=== PATIENT | female | born 1945 | race Caucasian/White ===

== ENCOUNTER 2017-12-07 14:14 | Emergency (ER) | payer MEDICARE ==
[~2017-12-07] VITALS: Ht 167.6 cm; Wt 62.6 kg
[2017-12-07] MEDS ORDERED: predniSONE 20 MG TABLET PO ONE (14:30)
[2017-12-07] MEDS ORDERED: IPRATRPIUM/ALBUTEROL 0.5/2.5MG 3 ML NEBU. NEB ONE (14:30)
[2017-12-07] MEDS ORDERED: PRED20TA PO (14:33)
[2017-12-07] MEDS ORDERED: ALBU6.7H IH (14:33)
--- NOTE | 2017-12-07 14:34 | PHYS DOC ---
Past History Past Medical History: High Cholesterol, Other Past Surgical History: No Surgical History Alcohol Use: None Drug Use: None Adult General Chief Complaint Chief Complaint: COUGH HPI HPI 72-year-old otherwise very healthy female [facility] secondary to wheezing and coughing and concern about pneumonia. Patient states that a month or so ago she was on 2 weeks of amoxicillin for a presumed ammonia. She did not have a chest x-ray at that time. She states over the last several days she's developed more of a cough and some increased shortness of breath. She denies any fever chills or sweats. She denies any hemoptysis. She has not been a smoker.[] Review of Systems Review of Systems Constitutional: Denies fever or chills [] Eyes: Denies change in visual acuity, redness, or eye pain [] HENT: Denies nasal congestion or sore throat [] Respiratory: Per history of present illness[] Cardiovascular: No additional information not addressed in HPI [] GI: Denies abdominal pain, nausea, vomiting, bloody stools or diarrhea [] : Denies dysuria or hematuria [] Musculoskeletal: Denies back pain or joint pain [] Integument: Denies rash or skin lesions [] Neurologic: Denies headache, focal weakness or sensory changes [] Endocrine: Denies polyuria or polydipsia [] All other systems were reviewed and found to be within normal limits, except as documented in this note. Physical Exam Physical Exam Constitutional: Well developed, well nourished, no acute distress, non-toxic appearance. [] HENT: Normocephalic, atraumatic, bilateral external ears normal, oropharynx moist, no oral exudates, nose normal. [] Eyes: PERRLA, EOMI, conjunctiva normal, no discharge. [] Neck: Normal range of motion, no tenderness, supple, no stridor. [] Cardiovascular:Heart rate regular rhythm, no murmur [] Lungs & Thorax: Mild apical wheezes bilaterally no rales[] Abdomen: Bowel sounds normal, soft, no tenderness, no masses, no pulsatile masses. [] Skin: Warm, dry, no erythema, no rash. [] Back: No tenderness, no CVA tenderness. [] Extremities: No tenderness, no cyanosis, no clubbing, ROM intact, no edema. [] Neurologic: Alert and oriented X 3, normal motor function, normal sensory function, no focal deficits noted. [] Psychologic: Affect normal, judgement normal, mood normal. [] EKG EKG [] Radiology/Procedures Radiology/Procedures []PATIENT: VAMSHI BATES EACCOUNT: [id number]#: [id number] : 1945 LOCATION: ER AGE: 72 SEX: F EXAM STATUS: PRE ER ORD. PHYSICIAN: ELLA ROE DO REASON: wheezing PROCEDURE: CHEST AP ONLY Portable chest, 12/07/2017: HISTORY: Cough and wheezing The heart size and pulmonary vascularity are normal. No pulmonary infiltrate is seen. There is no evidence of pleural fluid. IMPRESSION: No acute cardiopulmonary abnormality is detected. Impressions: Chest x-ray: Negative exam as interpreted by me Course & Med Decision Making Course & Med Decision Making Pertinent Labs and Imaging studies reviewed. (See chart for details) [ED course: Evaluation reveals a 72-year-old female with some mild wheezing. She was given 60 mg prednisone and a DuoNeb which completely resolved her symptoms. I'll start her on albuterol metered-dose inhaler and steroids as an outpatient. I believe this is a viral bronchitis and will not need to be treated with any further antibiotics. I have recommended that she follow up with her primary care physician if she is not better in the next week or 2.] Dragon Disclaimer Dragon Disclaimer This electronic medical record was generated, in whole or in part, using a voice recognition dictation system. Departure Departure: Impression: Primary Impression: Bronchitis Disposition: 01 HOME, SELF-CARE Condition: IMPROVED Referrals: SABINO MENARD MD (PCP) Patient Instructions: Acute Bronchitis Additional Instructions: Follow with Dr. Garcia in the next 3-5 days. Return to the emergency department with any new or concerning symptoms. Scripts Albuterol Sulfate (PROVENTIL HFA INHALER) 6.7 Gm Hfa.aer.ad 2 PUFF IH PRN Q4HRS PRN for FOR ASTHMA, #1 INHALER 2 Refills Prov: ELLA ROE DO 12/07/17 Prednisone (PREDNISONE) 20 Mg Tablet 1 TAB PO BID for Bronchitis, #20 TAB Prov: ELLA ROE DO 12/07/17 ELLA ROE DO Dec 07, 2017 14:34
--- NOTE | 2017-12-07 14:57 | RAD ---
Portable chest, 12/07/2017: HISTORY: Cough and wheezing The heart size and pulmonary vascularity are normal. No pulmonary infiltrate is seen. There is no evidence of pleural fluid. IMPRESSION: No acute cardiopulmonary abnormality is detected. Electronically signed by: Wesley Lopez MD (12/07/2017 2:53 PM) [facility]
[2017-12-07 15:10] VITALS: BP 146/88
== END 2017-12-07 15:15 | disposition home or self-care (01) ==
LOC: ER 14:14
DX: J40 Bronchitis, not specified as acute or chronic (principal); E78.00 Pure hypercholesterolemia, unspecified
CPT/HCPCS: 71045; 94640; 99283; J7512; J7620

== ENCOUNTER 2020-05-29 01:28 | Emergency (ER) | payer MEDICARE ==
[~2020-05-29] VITALS: Ht 160 cm; Wt 65.3 kg
[~2020-05-29 01:28] MED LIST: ALBU2.5V8 IH; PRED20TA PO
--- NOTE | 2020-05-29 01:31 | PHYS DOC ---
Past History Past Medical History: Anxiety, Arthritis, Bronchitis, Diabetes, High Cholesterol, Hypertension, Other Past Surgical History: Tonsillectomy Alcohol Use: None Drug Use: None General Adult HPI: HPI: ".. I feel terrible...I ve coughing, wheezing, aching., I was exposed to the other [employer] team that had Covid infections last week... I got sick starting T hursday.. Have been flat in bed since then..., Lost my smell, taste, I hurt everywhere..." Patient is a 74 year old female who presents with above hx and complaints nausea, vomiting, diarrhea, arthralgia, myalgia, malaise, loss of taste and smell, and dyspnea. Patient exposed to fellow [employer] team members who tested positive for Covid last week. Patient states her non-productive cough has been constant the last 24 hours. Patient denies any travel . Patient has had episodes of bronchitis in the past. Patient has history of hypothyroidism, arthritis and bronchitis.. Pt. does not do flu vaccinations. The patient follows with Dr. Menard. Review of Systems: Review of Systems: Constitutional: Hx. of fever and chills Eyes: Denies change in visual acuity HENT: Hx lost of taste and smell Respiratory: Complaints of cough and shortness of breath Cardiovascular: Denies chest pain or edema GI: Complaints nausea, vomitingand diarrhea : Denies dysuria Musculoskeletal: Complaints of generalized muscle and joint pain Integument: Denies rash Neurologic: Denies headache, focal weakness or sensory changes Endocrine: Denies polyuria or polydipsia Lymphatic: Denies swollen glands Psychiatric: Denies depression or anxiety Family History: Family History: Noncontributory presentation Current Medications: Current Meds: See nursing for home meds Allergies: Allergies: Patient reports no known allergies to medications Allergies Coded Allergies Type Severity Reaction Last Updated Verified No Known Drug Allergies 12/07/17 No Physical Exam: PE: Constitutional: Moderate acute distress, non-toxic appearance. [] HENT: Normocephalic, atraumatic, bilateral external ears normal, oropharynx dry, postnasal drainage no oral exudates, nose swollen turbinates and clear rhinorrhea Eyes: PERRLA, EOMI, conjunctiva normal, no discharge. [] Neck: Normal range of motion, no tenderness, supple, no stridor. [] Cardiovascular:Heart rate regular rhythm, no murmur [] Lungs & Thorax: Bilateral breath sounds equal apex with scattered wheezes on auscultation []. Somewhat persistent nonproductive hacking cough. Abdomen: Bowel sounds normal, soft, no tenderness, no masses, no pulsatile masses. [] Skin: Warm, dry, no erythema, no rash. Poor turgor Back: No tenderness, no CVA tenderness. [] Extremities: Complains of generalized muscle and joint tenderness, no cyanosis, no clubbing, ROM intact, no edema. No cording. Neurologic: Alert and oriented X 3, normal motor function, normal sensory function, no focal deficits noted. [] Psychologic: Affect anxious, judgement normal, mood normal. [] Current Patient Data: Labs: See nursing for home meds EKG: EKG: My interpretation EKG shows a sinus rhythm at 76 bpm. There is a right bundle branch block. Some nonspecific contour changes and the septal leads. But no findings of acute STEMI with contralateral changes [] Radiology/Procedures: Radiology/Procedures: [][place] [address] IMAGING REPORT Signed PATIENT: VAMSHI BATES EACCOUNT: [id number] : 1945 LOCATION: ER AGE: 74 SEX: F EXAM STATUS: REG ER ORD. PHYSICIAN: ETHEL SMALL MD REASON: DYSPNEA, COUGH PROCEDURE: PORTABLE CHEST 1V PORTABLE CHEST 1V INDICATION: Reason: DYSPNEA, COUGH / Spl. Instructions: / History: . COMPARISON STUDY: 12/07/2017. FINDINGS: Lungs: Normal lung volume. No pulmonary mass or consolidation. The tracheobronchial tree and hilar structures are normal. Pleura: No pleural effusion or pneumothorax. Heart and Mediastinum: The cardiomediastinal silhouette is normal. Atherosclerosis of the thoracic aorta. IMPRESSION: No acute cardiopulmonary process. Electronically signed by: Rosario Penn MD (05/29/2020 2:37 AM) [facility] DICTATED AND SIGNED BY: ROSARIO PENN MD DATE: 05/29/20 0237 CC: SABINO MENARD MD; ETHEL SMALL MD ~MTH0 0 Heart Score: HEART Score for Chest Pain: HEART Score for Chest Pain Response (Comments) Value History Moderately Suspicious 1 ECG Nonspecific Repolarizatio 1 Age > 65 2 Risk Factors 1 or 2 Risk Factors 1 Troponin < Normal Limit 0 Total 5 Risk Factors: Risk Factors: DM, Current or recent (<one month) smoker, HTN, HLP, family history of CAD, obesity. Risk Scores: Score 0 - 3: 2.5% MACE over next 6 weeks - Discharge Home Score 4 - 6: 20.3% MACE over next 6 weeks - Admit for Clinical Observation Score 7 - 10: 72.7% MACE over next 6 weeks - Early Invasive Strategies Course & Med Decision Making: Course & Med Decision Making Pertinent Labs and Imaging studies reviewed. (See chart for details) Patient to self isolate for the next 10 days. Patient to always wear a mask that covers both her mouth and nose. Patient to push fluids. Patient use MDI 2 puffs 4 times a day. Patient take Zithromax 250 mg a day. Patient take Tylenol and ibuprofen for pain. Patient can consider getting flu vaccination when over this acute illness. Patient return if any concerns. Patient patient to push fluids such as Gatorade. Patient to follow-up with Dr. Menard. 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 Recommend patient complete Pneumovax and zoster vaccination if she has not done so. Impression: 1.Viral Syndrome- with hx exposure to COVID 2.Dyspnea 3. Bronchitis 4. Hyponatremia 127 5. Diabetes - 121 [] Dragon Disclaimer: Dragon Disclaimer: This electronic medical record was generated, in whole or in part, using a voice recognition dictation system. Departure Departure: Referrals: SABINO MENARD MD (PCP) Scripts Azithromycin (AZITHROMYCIN TABLET) 250 Mg Tablet 250 MG PO DAILY for ANTI-BIOTIC for 5 Days, #5 TAB 0 Refills Prov: ETHEL SMALL MD 05/29/20 Dragon Disclaimer This chart was dictated in whole or in part using Voice Recognition software in a busy, high-work load, and often noisy Emergency Department environment. It may contain unintended and wholly unrecognized errors or omissions. Dragon Disclaimer This chart was dictated in whole or in part using Voice Recognition software in a busy, high-work load, and often noisy Emergency Department environment. It may contain unintended and wholly unrecognized errors or omissions. Dragon Disclaimer This chart was dictated in whole or in part using Voice Recognition software in a busy, high-work load, and often noisy Emergency Department environment. It may contain unintended and wholly unrecognized errors or omissions. ETHEL SMALL MD May 29, 2020 01:31
[2020-05-29] MEDS ORDERED: ASPIRIN CHEWABLE 81 MG TABLET. PO ONE (01:45)
[2020-05-29] MEDS ORDERED: ALBUTEROL SULFATE 8GM INHALER. INH ONE (01:45)
[2020-05-29] MEDS ORDERED: IV RINGERS SOLUTION,LACTATED 1,000 ML IV SCH (01:45)
[2020-05-29] MEDS ORDERED: AZITHROMYCIN 250 MG TABLET. PO ONE (02:30)
--- NOTE | 2020-05-29 02:41 | RAD ---
PORTABLE CHEST 1V INDICATION: Reason: DYSPNEA, COUGH / Spl. Instructions: / History: . COMPARISON STUDY: 12/07/2017. FINDINGS: Lungs: Normal lung volume. No pulmonary mass or consolidation. The tracheobronchial tree and hilar structures are normal. Pleura: No pleural effusion or pneumothorax. Heart and Mediastinum: The cardiomediastinal silhouette is normal. Atherosclerosis of the thoracic aorta. IMPRESSION: No acute cardiopulmonary process. Electronically signed by: Pierce Penn MD (05/29/2020 2:37 AM) [facility]
[2020-05-29 02:42] LABS: BASO % 0 % (0-3); EOS % 0 % (0-3); HEMATOCRIT 39.6 % (36.0-47.0); HEMOGLOBIN 13.1 g/dL (12.0-15.5); LYMPH # 0.6 x10^3/uL (1.0-4.8); LYMPH % 10 % (24-48); MEAN CORPUSCULAR HEMOGLOBIN 30 pg (25-35); MEAN CORPUSCULAR HGB CONC 33 g/dL (31-37); MEAN CORPUSCULAR VOLUME 91 fL (79-100); MONO # 0.6 x10^3/uL (0.0-1.1); MONO % 9 % (0-9); NEUT % 81 % (31-73); PLATELET COUNT 156 x10^3/uL (140-400); RED BLOOD COUNT 4.33 x10^6/uL (3.50-5.40); RED CELL DISTRIBUTION WIDTH 13.1 % (11.5-14.5); WHITE BLOOD COUNT 6.2 x10^3/uL (4.0-11.0)
[2020-05-29 02:47] LABS: CALCIUM 8.8 mg/dL (8.5-10.1); GFR 54.5; POTASSIUM 4.2 mmol/L (3.5-5.1)
[2020-05-29 03:00] LABS: ALBUMIN 3.4 g/dL (3.4-5.0); DIRECT BILIRUBIN 0.1 mg/dL (0.0-0.2); MAGNESIUM 1.7 mg/dL (1.8-2.4); TOTAL BILIRUBIN 0.4 mg/dL (0.2-1.0); TOTAL PROTEIN 7.2 g/dL (6.4-8.2)
[2020-05-29] MEDS ORDERED: SODIUM BICARB ADULT 8.4% 50 MEQ/50 ML DISP.SYRIN. IV ONE (03:15)
[2020-05-29] MEDS ORDERED: AZIT250T6 PO (04:35)
[2020-05-29 04:36] VITALS: BP 135/70
[2020-05-29 04:42] LABS: CLARITY,URINE CLEAR; COLOR,URINE YELLOW
[2020-05-29 04:43] LABS: BACTERIA,URINE 0 /HPF (0-FEW); BILIRUBIN,URINE NEG (NEG); GLUCOSE,URINE NEG (NEG); NITRITE,URINE NEG (NEG); SQUAMOUS EPITHELIAL CELL,UR OCC /LPF; UROBILINOGEN,URINE 0.2 mg/dL (0.2 mg/dL); WBC,URINE OCC /HPF (0-4)
[2020-05-29 04:45] LABS: BARBITURATES NEG (NEG); BENZODIAZEPINES NEG (NEG); CANNABINOIDS POS (NEG); COCAINE NEG (NEG); METHADONE NEG (NEG); OPIATES NEG (NEG); PHENCYCLIDINE NEG (NEG)
[2020-05-29 04:52] LABS: AMPHETAMINE/METHAMPHETAMINE NEG (NEG)
--- NOTE | 2020-05-29 05:28 | EKG ---
[facility] ED [facility] [address] [place] [address] Test Date: 2020-05-29 Test Time: 01:54:18 Pat Name: VAMSHI BATES Department: Room: Gender: F Architecture Technician: : 1945 Requested By: ETHEL SMALL Order Number: [id number] Reading MD: Garry Guerrero Measurements Intervals [place] Rate: 76 P: 28 NC: 162 QRS: 6 QRSD: 84 T: 39 QT: 384 QTc: 431 Interpretive Statements SINUS RHYTHM QRS(T) CONTOUR ABNORMALITY CONSISTENT WITH SEPTAL INFARCT AGE UNDETERMINED ABNORMAL ECG RI6.02 No previous ECG available for comparison Electronically Signed On 05-30-2020 10:24:06 FINANCIAL AIDS OFFICER by Garry Guerrero
[2020-05-30] MEDS ORDERED: ATOR20TA58 PO (08:17)
[2020-05-30] MEDS ORDERED: LISI1TAB37 PO (08:17)
[2020-05-30] MEDS ORDERED: CETI10TA16 PO (08:17)
[2020-05-30] MEDS ORDERED: LEVO50TA5 PO (08:17)
[2020-06-02] MEDS ORDERED: ZINC220C2 PO (09:43)
[2020-06-02] MEDS ORDERED: CHOL10003 PO (09:43)
[2020-06-02] MEDS ORDERED: FAMO20TA5 PO (09:43)
[2020-06-02] MEDS ORDERED: ALBU2.5V8 IH (09:43)
[2020-06-02] MEDS ORDERED: HYDROcodone/CHLORPHEN POLIS PO (09:43)
[2020-06-02] MEDS ORDERED: DEXA4TAB63 PO (09:43)
[2020-06-02] MEDS ORDERED: AZIT250T6 PO (09:43)
[2020-06-02] MEDS ORDERED: LACT1CAP19 PO (09:43)
== END 2020-05-29 05:27 | disposition home or self-care (01) ==
LOC: ER 01:28
DX: B34.9 Viral infection, unspecified (principal); Z20.828 Contact with and (suspected) exposure to other viral communicable diseases; R06.02 Shortness of breath; J40 Bronchitis, not specified as acute or chronic; E87.1 Hypo-osmolality and hyponatremia; R11.2 Nausea with vomiting, unspecified; F41.9 Anxiety disorder, unspecified; M19.90 Unspecified osteoarthritis, unspecified site; E11.9 Type 2 diabetes mellitus without complications; E78.00 Pure hypercholesterolemia, unspecified; I10 Essential (primary) hypertension; Z90.89 Acquired absence of other organs; Z79.899 Other long term (current) drug therapy
CPT/HCPCS: 36415; 71045; 80048; 80076; 80307; 81001; 82550; 83605; 83690; 83735; 83880; 84443; 84484; 85025; 85379; 85610; 85730; 86140; 93005; 96361; 96374; 99285; J0456; J7120; J7613

== ENCOUNTER 2020-05-30 02:20 | Inpatient (IN) | payer MEDICARE ==
[~2020-05-30] VITALS: Ht 167.6 cm; Wt 65.2 kg
[~2020-05-30 02:20] MED LIST changes: +AZIT250T6 PO
--- NOTE | 2020-05-30 02:25 | PHYS DOC ---
Past History Past Medical History: Anxiety, Arthritis, Bronchitis, Diabetes, High Cholesterol, Hypertension, Other Past Medical History Hx. of FanKavere's Past Surgical History: Tonsillectomy Alcohol Use: None Drug Use: None General Adult HPI: HPI: ".. I am no better.. I was here earlier or yesterday.... 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 and when we went out to eat..... on .. . I just dont feel better yet...".." My called a friend.. and then .. they called the ambulance... .. I was sleeping... he said I had to come back in.. "..." I did not take the meds.. I am just felt too nauseated... ".. " I not better .. than I was ... when I left yesterday morning.... Its feels like I got the flu.. I know .. I probably got the COVID.. because the other bowling teams got it.. I got dizzy stuff .. from [employer] anyway...and this COVID has not made that better....".. "I still can't sell or taste anything... " ".. So I just don't want to eat or drink.."..".. I don't want to wear that mask all the time... ".." My does not want me at home.. because he says . if he gets COVID.. he will ..because of his heart problems.." Patient is a 74 year old female who presents with above hx. and complaints of nausea, malaise, arthralgia, myalgia, nonproductive cough, wheezing, and fatigue. Pt. seen yesterday for same complaints as today. Pt. Hx. of bowling with friends who had COVID. Patient has not used her MDI, taken any Tylenol or ibuprofen. Not has used any Benadryl .. Has not taken her Zithromax. Has not push fluids. Pt. does not do flu vaccinations. Patient denies any travel. Hx of exposure to COVID/ Has had episodes of bronchitis in the past. Has history of hypothyroidism, arthritis, Mnire's, elevated cholesterol, diabetes, arthritis, anxiety, and bronchitis. Patient follows Dr. Menard. Review of Systems: Review of Systems: Constitutional: History of fever or chills Eyes: Denies change in visual acuity HENT: History of nasal congestion and drainage Respiratory: History of cough and wheezing Cardiovascular: Denies chest pain or edema GI: History of, nausea,. Denies vomiting, bloody stools or diarrhea : Denies dysuria Musculoskeletal: Complains of all of her joints and muscles are hurting. Complaint of generalized fatigue and weakness. Integument: Denies rash Neurologic: Denies headache, focal weakness. She complains of generalized fatigue. Complains of loss of taste and smell Endocrine: Denies polyuria or polydipsia Lymphatic: Denies swollen glands Psychiatric: Complains of anxiety Family History: Family History: Noncontributory to presentation Current Medications: Current Meds: See nursing for home meds Allergies: Allergies: Allergies Coded Allergies Type Severity Reaction Last Updated Verified No Known Drug Allergies 05/29/20 No Physical Exam: PE: Constitutional: , no acute distress, non-toxic appearance. Wearing her mask on her chin. HENT: Normocephalic, atraumatic, bilateral external ears normal, oropharynx dry, no oral exudates, nose swollen turbinates clear rhinorrhea Eyes: PERRLA, EOMI, conjunctiva normal, no discharge. [] Neck: Normal range of motion, no tenderness, supple, no stridor. [] Cardiovascular:Heart rate regular rhythm, no murmur [] Lungs & Thorax: Bilateral breath sounds equal apex with scattered wheezes on auscultation. No active coughing episodes today. Abdomen: Bowel sounds normal, soft, no tenderness, no masses, no pulsatile masses. [] Skin: Warm, dry, no erythema, no rash. [] Back: No tenderness, no CVA tenderness. [] Extremities: Generalized muscle and joint tenderness, no cyanosis, no clubbing, moves all extremities on prompting, no edema. [] Neurologic: Alert and oriented X 3, moves all extremities on request and prompting,( reports loss of taste and smell) no new focal deficits noted from previous exam. DTRs +2 patellar brachial. Fitness Manager equal. Giveaway weakness. Patient was able to ambulate to the bathroom and back without assistance. Psychologic: Affect flat at times and other times anxious, judgement ?-seems to lack insight or understanding of her disease process, mood gives a good depressed affect . EKG: EKG: My interpretation of EKG shows sinus rhythm at 63 bpm. Low voltage. But no findings of acute STEMI of contralateral changes no acute interval change .[] Radiology/Procedures: Radiology/Procedures: [][address] [address] IMAGING REPORT Signed PATIENT: VAMSHI BATES EACCOUNT: [id number] : 1945 LOCATION: ER AGE: 74 SEX: F EXAM STATUS: REG ER ORD. PHYSICIAN: ETHEL SMALL MD REASON: COUGH, FEVER CHILL, EX. COVID PROCEDURE: CHEST AP ONLY CHEST AP ONLY INDICATION: Reason: COUGH, FEVER CHILL, EX. COVID / Spl. Instructions: / History: . COMPARISON STUDY: 05/29/2020. FINDINGS: Lungs: Normal lung volume. No pulmonary mass or consolidation. The tracheobronchial tree and hilar structures are normal. Pleura: No pleural effusion or pneumothorax. Heart and Mediastinum: The cardiomediastinal silhouette is normal. Atherosclerosis of the thoracic aorta. IMPRESSION: No consolidation. Electronically signed by: Rosario Penn MD (05/30/2020 3:23 AM) [facility] DICTATED AND SIGNED BY: ROSARIO PENN MD DATE: 05/30/20 0323 CC: SABINO MENARD MD; ETHEL SMALL MD ~MTH0 0 Heart Score: HEART Score for Chest Pain: HEART Score for Chest Pain Response (Comments) Value History Slighlty/Non-Suspicious 0 ECG Normal 0 Age > 65 2 Risk Factors 1 or 2 Risk Factors 1 Troponin < Normal Limit 0 Total 3 Risk Factors: Risk Factors: DM, Current or recent (<one month) smoker, HTN, HLP, family history of CAD, obesity. Risk Scores: Score 0 - 3: 2.5% MACE over next 6 weeks - Discharge Home Score 4 - 6: 20.3% MACE over next 6 weeks - Admit for Clinical Observation Score 7 - 10: 72.7% MACE over next 6 weeks - Early Invasive Strategies Course & Med Decision Making: Course & Med Decision Making Pertinent Labs and Imaging studies reviewed. (See chart for details) Discussed presentation, testing and tx plan with Dr. Menard. Admit for further eval. and hydration. Plan continue Zithromax and Ventolin treatments. Impression: 1. Viral Syndrome- Hx. of COVID exposure. 2. Bronchitis 3. Hyponatremia ( Yesterday-127- [id number]) 4. DM 5. Noncompliant with medical regimen 6. History of hypothyroidism 7. History of Mnire's 8. Out pt. treatment Failure [] Dragon Disclaimer: Dragon Disclaimer: This electronic medical record was generated, in whole or in part, using a voice recognition dictation system. Departure Departure: Referrals: SABINO MENARD MD (PCP) Radha Disclaimer This chart was dictated in whole or in part using Voice Recognition software in a busy, high-work load, and often noisy Emergency Department environment. It may contain unintended and wholly unrecognized errors or omissions. Dragon Disclaimer This chart was dictated in whole or in part using Voice Recognition software in a busy, high-work load, and often noisy Emergency Department environment. It may contain unintended and wholly unrecognized errors or omissions. ETHEL SMALL MD May 30, 2020 02:25
[2020-05-30] MEDS ORDERED: ONDANSETRON PF 4 MG/2 ML VIAL. IVP PRN (02:45)
[2020-05-30] MEDS ORDERED: ACETAMINOPHEN 325 MG TABLET PO PRN (02:45)
[2020-05-30] MEDS ORDERED: IV RINGERS SOLUTION,LACTATED 1,000 ML IV ONE (03:00)
[2020-05-30] MEDS ORDERED: ONDANSETRON PF 4 MG/2 ML VIAL. IVP ONE (03:00)
--- NOTE | 2020-05-30 03:26 | RAD ---
CHEST AP ONLY INDICATION: Reason: COUGH, FEVER CHILL, EX. COVID / Spl. Instructions: / History: . COMPARISON STUDY: 05/29/2020. FINDINGS: Lungs: Normal lung volume. No pulmonary mass or consolidation. The tracheobronchial tree and hilar structures are normal. Pleura: No pleural effusion or pneumothorax. Heart and Mediastinum: The cardiomediastinal silhouette is normal. Atherosclerosis of the thoracic aorta. IMPRESSION: No consolidation. Electronically signed by: Pierce Penn MD (05/30/2020 3:23 AM) [facility]
[2020-05-30 04:06] LABS: INFLUENZA A PATIENT NEGATIVE (NEGATIVE); INFLUENZA B PATIENT NEGATIVE (NEGATIVE)
[2020-05-30 04:52] LABS: BASO % 0 % (0-3); EOS % 0 % (0-3); HEMATOCRIT 39.1 % (36.0-47.0); HEMOGLOBIN 12.6 g/dL (12.0-15.5); LYMPH # 0.7 x10^3/uL (1.0-4.8); LYMPH % 12 % (24-48); MEAN CORPUSCULAR HEMOGLOBIN 30 pg (25-35); MEAN CORPUSCULAR HGB CONC 32 g/dL (31-37); MEAN CORPUSCULAR VOLUME 93 fL (79-100); MONO # 0.5 x10^3/uL (0.0-1.1); MONO % 9 % (0-9); NEUT # 4.5 x10^3uL (1.8-7.7); NEUT % 78 % (31-73); PLATELET COUNT 157 x10^3/uL (140-400); RED BLOOD COUNT 4.23 x10^6/uL (3.50-5.40); RED CELL DISTRIBUTION WIDTH 13.2 % (11.5-14.5); WHITE BLOOD COUNT 5.8 x10^3/uL (4.0-11.0)
[2020-05-30 04:53] LABS: CALCIUM 8.5 mg/dL (8.5-10.1); CREATININE 0.9 mg/dL (0.6-1.0); GFR 61.5; POTASSIUM 3.5 mmol/L (3.5-5.1)
[2020-05-30 04:59] LABS: ALBUMIN 3.2 g/dL (3.4-5.0); TOTAL BILIRUBIN 0.4 mg/dL (0.2-1.0); TOTAL PROTEIN 6.4 g/dL (6.4-8.2)
[2020-05-30 06:35] VITALS: BP 159/81
--- NOTE | 2020-05-30 06:42 | EKG ---
[address] [address] Test Date: 2020-05-30 Test Time: 02:50:03 Pat Name: VAMSHI BATES Department: Room: 103 A Gender: F Tooling Manager: ROLO : 1945 Requested By: ETHEL SMALL Order Number: [id number] Reading MD: Measurements Intervals [place] Rate: 63 P: 31 UT: 166 QRS: 39 QRSD: 82 T: 52 QT: 420 QTc: 433 Interpretive Statements SINUS RHYTHM LOW LIMB LEAD VOLTAGE NO SPECIFIC ECG ABNORMALITIES RI6.02 No previous ECG available for comparison
[2020-05-30] MEDS ORDERED: ALBUTEROL SULFATE 2.5 MG/3 ML NEBU. IH PRN (06:45)
[2020-05-30] MEDS ORDERED: IPRATRPIUM/ALBUTEROL 0.5/2.5MG 3 ML NEBU. NEB SCH (08:00)
[2020-05-30] MEDS ORDERED: LEVO50TA5 PO (08:17)
[2020-05-30] MEDS ORDERED: CETI10TA16 PO (08:17)
[2020-05-30] MEDS ORDERED: ATOR20TA58 PO (08:17)
[2020-05-30] MEDS ORDERED: LISI1TAB37 PO (08:17)
--- NOTE | 2020-05-30 08:25 | NUR ---
NURSING NOTE: PT ADMITTED TO UNIT PRIOR TO THIS RNS SHIFT. PT RESTING IN BED COMFORTABLY UPON ASSESSMENT. PT HAD NO COMPLAINTS AT THIS TIME. PT WALKED TO THE RESTROOM, PT STEADY UPON WALK. WILL CONTINUE TO MONITOR. PAWAN FRENCH
[2020-05-30] MEDS ORDERED: predniSONE 20 MG TABLET PO SCH (09:00)
[2020-05-30] MEDS ORDERED: FAMOTIDINE 20 MG TABLET PO ONE (10:15)
[2020-05-30 11:05] VITALS: BP 149/83
[2020-05-30] MEDS: LISINOPRIL 10 MG TABLET PO SCH (11:21)
[2020-05-30] MEDS: hydroCHLOROthiazide 25 MG TABLET PO SCH (11:22)
[2020-05-30] MEDS: LEVOTHYROXINE 50 MCG TABLET PO SCH (11:22)
[2020-05-30] MEDS: AZITHROMYCIN 250 MG TABLET. PO SCH (11:22)
[2020-05-30] MEDS: CETIRIZINE HCL 10 MG TABLET PO SCH (11:23)
[2020-05-30] MEDS: ALBUTEROL SULFATE 8GM INHALER. INH SCH ×4 (11:23→21:00)
[2020-05-30 15:45] VITALS: BP 132/78
[2020-05-30] MEDS: DEXAMETHASONE SOD PHOS 4 MG/ML VIAL. IVP SCH (17:12)
[2020-05-30 20:24] VITALS: BP 124/74
--- NOTE | 2020-05-30 21:23 | HP ---
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 Anywhere for the last 3-4 days, the patient has not been feeling well. She went to the Emergency Room and was prescribed some medication, but she failed to get those filled, in the meantime she got worse and then represented herself to the Emergency Room and was admitted. She had complaints of nausea, malaise, arthralgias, myalgias, nonproductive cough, wheezing and fatigue. The patient in bed, using her MDI. In any case, the patient was admitted for acute respiratory distress, probable COVID infection as well. The patient had failed outpatient therapy and was admitted for further evaluation and treatment according to protocol. PAST MEDICAL HISTORY: Meniere's, hypercholesterolemia, hypertension, hypothyroidism. IMMUNIZATIONS: Influenza vaccination up-to-date. ALLERGIES: No known allergies. SOCIAL HISTORY: Denies smoking, alcohol or drug use. REVIEW OF SYSTEMS: As noted above. Outside denies chest pain, abdominal pain. Denies any diarrhea. The patient otherwise neurologically quite stable. MEDICATIONS: Taken azithromycin, albuterol HFA, atorvastatin 20, Zyrtec, lisinopril HCT, prednisone 20, levothyroxine 50 mcg. PHYSICAL EXAMINATION: GENERAL: The patient is a very pleasant white female, moderate amount of distress, running low-grade temperature of 99.4. The patient otherwise is alert and oriented. VITAL SIGNS: Blood pressure 120/70, respiratory rate 20, pulse 70, 96% oxygen saturation on room air. HEENT: Atraumatic, normocephalic. Eyes, PERRLA without jaundice. Mouth and throat were normal. NECK: Supple, without JVD, carotid bruits nor thyromegaly. LUNGS: Diminished throughout, some crackles noted in the bases. CARDIOVASCULAR: Regular sinus rhythm, S1, S2, without murmur, rub, thrill, or extra heart sound. ABDOMEN: Soft, nontender, no rebounding or guarding. Positive bowel sounds. EXTREMITIES: No clubbing, cyanosis, nor edema. NEUROLOGIC: Intact. LABORATORY DATA: The patient's labs show white count 5.8, hemoglobin 12, and hematocrit 39. Potassium 3.5, sodium 130, BUN and creatinine 10 and 0.9. Albumin low at 3.2 and serology is negative for influenza. IMPRESSION: Acute respiratory distress, exposure to COVID-19, complaints of nausea, malaise, arthralgia, myalgia and bronchospasm. PLAN: The patient will be placed on COVID-19 protocol and make further evaluation once other results have been returned. SABINO MENARD MD DR: VLAD/jeannette JOB#: [id number] / [id number]
[2020-05-30] MEDS: FAMOTIDINE 20 MG TABLET PO SCH (21:31)
[2020-05-30] MEDS: HYDROcodone/CHLORPHEN POLIS 5 ML SUS.ER.12H PO PRN (21:31)
[2020-05-30] MEDS: LACTOBACILLUS RHAMNOSUS GG 1 CAPSULE. PO SCH (21:31)
[2020-05-30] MEDS: ATORVASTATIN CALCIUM 20 MG TABLET PO SCH (21:31)
[2020-05-31] VITALS: BP 132/73
[2020-05-31] MEDS: DEXAMETHASONE SOD PHOS 4 MG/ML VIAL. IVP SCH ×5 (00:23→23:42)
[2020-05-31] MEDS: LEVOTHYROXINE 50 MCG TABLET PO SCH (04:57)
[2020-05-31 05:04] VITALS: BP 159/80
[2020-05-31 05:50] LABS: CALCIUM 9.3 mg/dL (8.5-10.1); CREATININE 0.9 mg/dL (0.6-1.0); GFR 61.5; POTASSIUM 3.8 mmol/L (3.5-5.1)
[2020-05-31 06:38] LABS: BASO % 0 % (0-3); EOS % 0 % (0-3); HEMATOCRIT 38.3 % (36.0-47.0); HEMOGLOBIN 12.4 g/dL (12.0-15.5); LYMPH # 0.4 x10^3/uL (1.0-4.8); LYMPH % 8 % (24-48); MEAN CORPUSCULAR HEMOGLOBIN 30 pg (25-35); MEAN CORPUSCULAR HGB CONC 33 g/dL (31-37); MEAN CORPUSCULAR VOLUME 92 fL (79-100); MONO # 0.2 x10^3/uL (0.0-1.1); MONO % 5 % (0-9); NEUT # 4.1 x10^3uL (1.8-7.7); NEUT % 87 % (31-73); PLATELET COUNT 186 x10^3/uL (140-400); RED BLOOD COUNT 4.19 x10^6/uL (3.50-5.40); WHITE BLOOD COUNT 4.7 x10^3/uL (4.0-11.0)
[2020-05-31] MEDS: LACTOBACILLUS RHAMNOSUS GG 1 CAPSULE. PO SCH ×2 (08:15→20:49)
[2020-05-31] MEDS: AZITHROMYCIN 250 MG TABLET. PO SCH (08:15)
[2020-05-31] MEDS: ZINC SULFATE 220 MG CAPSULE. PO SCH (08:15)
[2020-05-31] MEDS: CETIRIZINE HCL 10 MG TABLET PO SCH (08:15)
[2020-05-31] MEDS: FAMOTIDINE 20 MG TABLET PO SCH ×2 (08:15→20:49)
[2020-05-31] MEDS: CHOLECALCIFEROL (VITAMIN D3) 1,000 UNIT TABLET PO SCH (08:15)
[2020-05-31] MEDS: hydroCHLOROthiazide 25 MG TABLET PO SCH (08:16)
[2020-05-31] MEDS: LISINOPRIL 10 MG TABLET PO SCH (08:16)
[2020-05-31] MEDS: ALBUTEROL SULFATE 8GM INHALER. INH SCH ×4 (08:16→20:49)
[2020-05-31] MEDS: HYDROcodone/CHLORPHEN POLIS 5 ML SUS.ER.12H PO PRN ×2 (10:19→20:49)
[2020-05-31 10:24] VITALS: BP 129/75
[2020-05-31 15:33] VITALS: BP 151/86
[2020-05-31 19:42] VITALS: BP 134/76
[2020-05-31] MEDS: ZOLPIDEM 5 MG TABLET. PO PRN ×2 (20:49→23:50)
[2020-05-31] MEDS: ATORVASTATIN CALCIUM 20 MG TABLET PO SCH (20:49)
[2020-06-01 00:04] VITALS: BP 130/71
--- NOTE | 2020-06-01 02:15 | PN ---
DATE: 05/31/2020 SUBJECTIVE: A 74-year-old female admitted with COVID pneumonia. The patient is feeling somewhat better on protocol of azithromycin, Decadron and oral inhalers. OBJECTIVE: VITAL SIGNS: Blood pressure 134/76, respiration 18, pulse 70, afebrile. GENERAL: The patient is alert and oriented, more closer to her normal self. LUNGS: Diminished, but clear. CARDIOVASCULAR: Regular sinus rhythm. ABDOMEN: Soft, nontender. The patient is making good progress overall with this COVID pneumonia. IMPRESSION: Pneumonia secondary to COVID, acute respiratory distress, multiple complaints of nausea, vomiting and myalgias. PLAN: The patient will continue on present drug regimen and make further adjustments as indicated. SABINO MENARD MD DR: VLAD/jeannette JOB#: [id number] / [id number]
[2020-06-01] MEDS: DEXAMETHASONE SOD PHOS 4 MG/ML VIAL. IVP SCH ×3 (05:35→18:33)
[2020-06-01] MEDS: LEVOTHYROXINE 50 MCG TABLET PO SCH (05:35)
[2020-06-01 05:55] VITALS: BP 136/68
--- NOTE | 2020-06-01 06:42 | NUR ---
PT IS IN CONTACT AND [employer] FOR POSITIVE COVID SWAB. PT INITIALLY HAD TROUBLE SLEEPING, REQUESTED PRN AMBIEN AROUND [id number]. PT AWOKE THIS MORNING IN PLEASANT MOOD, REPORTS SLEEPING WELL AFTER MED GIVEN. DENIES ANY C/O.
[2020-06-01] MEDS: ALBUTEROL SULFATE 8GM INHALER. INH SCH ×4 (09:00→20:38)
[2020-06-01] MEDS: HYDROcodone/CHLORPHEN POLIS 5 ML SUS.ER.12H PO PRN ×2 (10:50→20:37)
[2020-06-01] MEDS: hydroCHLOROthiazide 25 MG TABLET PO SCH (10:51)
[2020-06-01] MEDS: LISINOPRIL 10 MG TABLET PO SCH (10:52)
[2020-06-01] MEDS: LACTOBACILLUS RHAMNOSUS GG 1 CAPSULE. PO SCH ×2 (10:52→20:37)
[2020-06-01] MEDS: CETIRIZINE HCL 10 MG TABLET PO SCH (10:52)
[2020-06-01] MEDS: FAMOTIDINE 20 MG TABLET PO SCH ×2 (10:52→20:38)
[2020-06-01] MEDS: ZINC SULFATE 220 MG CAPSULE. PO SCH (10:52)
[2020-06-01] MEDS: AZITHROMYCIN 250 MG TABLET. PO SCH (10:52)
[2020-06-01] MEDS: CHOLECALCIFEROL (VITAMIN D3) 1,000 UNIT TABLET PO SCH (10:53)
[2020-06-01 10:56] VITALS: BP 121/70
[2020-06-01 15:04] VITALS: BP 121/74
--- NOTE | 2020-06-01 18:01 | NUR ---
NURSING NOTE: PT RESTING IN BED COMFORTABLY UPON ASSESSMENT AND MEDICATION ADMINISTRATION. C/O COUGHING, PT GIVEN COUGH MEDICATION. PT RESTING IN BED DURING THE DAY. PT INDEPENDENT WITH ADLS. WILL CONTINUE TO MONITOR. PAWAN FRENCH
[2020-06-01] MEDS: ATORVASTATIN CALCIUM 20 MG TABLET PO SCH (20:38)
[2020-06-01] MEDS: ZOLPIDEM 5 MG TABLET. PO PRN (20:38)
[2020-06-01 21:19] VITALS: BP 129/75
[2020-06-02] MEDS: DEXAMETHASONE SOD PHOS 4 MG/ML VIAL. IVP SCH ×2 (00:29→05:19)
[2020-06-02 00:46] VITALS: BP 142/78
[2020-06-02] MEDS: LEVOTHYROXINE 50 MCG TABLET PO SCH (05:18)
[2020-06-02 06:05] VITALS: BP 156/84
[2020-06-02] MEDS: FAMOTIDINE 20 MG TABLET PO SCH (09:00)
[2020-06-02] MEDS: CETIRIZINE HCL 10 MG TABLET PO SCH (09:00)
[2020-06-02] MEDS: CHOLECALCIFEROL (VITAMIN D3) 1,000 UNIT TABLET PO SCH (09:00)
[2020-06-02] MEDS: LACTOBACILLUS RHAMNOSUS GG 1 CAPSULE. PO SCH (09:00)
[2020-06-02] MEDS: AZITHROMYCIN 250 MG TABLET. PO SCH (09:00)
[2020-06-02] MEDS: ZINC SULFATE 220 MG CAPSULE. PO SCH (09:00)
[2020-06-02] MEDS: ALBUTEROL SULFATE 8GM INHALER. INH SCH (09:00)
[2020-06-02 09:19] VITALS: BP 156/84
[2020-06-02] MEDS: LISINOPRIL 10 MG TABLET PO SCH (09:19)
[2020-06-02] MEDS: hydroCHLOROthiazide 25 MG TABLET PO SCH (09:19)
[2020-06-02] MEDS ORDERED: AZIT250T6 PO (09:43)
[2020-06-02] MEDS ORDERED: ALBU2.5V8 IH (09:43)
[2020-06-02] MEDS ORDERED: FAMO20TA5 PO (09:43)
[2020-06-02] MEDS ORDERED: ZINC220C2 PO (09:43)
[2020-06-02] MEDS ORDERED: HYDROcodone/CHLORPHEN POLIS PO (09:43)
[2020-06-02] MEDS ORDERED: CHOL10003 PO (09:43)
[2020-06-02] MEDS ORDERED: DEXA4TAB63 PO (09:43)
[2020-06-02] MEDS ORDERED: LACT1CAP19 PO (09:43)
--- NOTE | 2020-06-02 09:48 | DISCH ---
HOME HEALTH DISCHARGE/MEDS DISCHARGE INFORMATION: Discharge Date: Jun 02, 2020 Final Diagnosis: Problems Medical Problems: (1) Viral labyrinthitis syndrome Status: Acute (2) Viral syndrome Status: Acute Condition on Discharge: Stable CODE STATUS: Code Status: Full HOME HEALTH: Face to Face: I certify this patient is under my care and that I, or a nurse practitioner or physician's product safety technical assistant working with me, had a face to face encounter that meets the physician face to face encounter requirements with this patient on 08/03/2019.. Prison For: Assess Cardiopulm Status, Assess & Educate Safety, Assess/Skilled Observatio, Medication Management Homebound Status Met By: Fatigue w/ amb. POST DISCHARGE ORDERS: Activity Instructions for Disc: No restrictions Weight Bearing Status after Di: No restrictions DIET AFTER DISCHARGE: Regular CHECKS AFTER DISCHARGE: Checks after discharge: Check your Temp as needed CERTIFICATION STATEMENT: Certification Statement: Based on the above finding, I certify that this patient is confined to the home and needs intermittent senior living care, physical therapy and/or speech therapy, or continues to need occupational therapy.~ This patient is under my care, and I have initiated the establishment of the plan of care.~ This patient will be followed by myself or a community physician who will periodically review the plan of care. DISCHARGE MEDICATIONS: Home Meds Active Scripts [HYDROcodone/CHLORPHEN POLIS] 5 ML KENIA.ER.12H No Conflict Check, 5 ML PO PRN Q12HR PRN for COUGH for 14 Days, #120 ML Prov:SABINO MENARD MD 06/02/20 Azithromycin (AZITHROMYCIN TABLET) 250 Mg Tablet, 250 MG PO DAILY for ANTI- BIOTIC for 5 Days, #5 TAB 0 Refills Prov:ETHEL SMALL MD 05/29/20 Albuterol Sulfate (PROVENTIL HFA INHALER) 6.7 Gm Hfa.aer.ad, 2 PUFF IH PRN Q4HRS PRN for FOR ASTHMA, #1 INHALER 2 Refills Prov:ELLA ROE DO 12/07/17 Prednisone (PREDNISONE) 20 Mg Tablet, 1 TAB PO BID for Bronchitis, #20 TAB Prov:ELLA ROE DO 12/07/17 Reported Medications Cetirizine Hcl (CETIRIZINE HCL) 10 Mg Tablet, 1 TAB PO DAILY for ALLERGIES 05/30/20 Levothyroxine Sodium (LEVOTHYROXINE SODIUM) 50 Mcg Tablet, 1 TAB PO DAILY for THYROID 05/30/20 Atorvastatin Calcium (ATORVASTATIN CALCIUM) 20 Mg Tablet, 1 TAB PO QHS for HIGH CHOLESTEROL 05/30/20 Lisinopril/Hydrochlorothiazide (LISINOPRIL-HCTZ 20-12.5 MG TAB) 1 Each Tablet, 0.5 TAB PO DAILY for HIGH BLOOD PRESSURE 05/30/20 SABINO MENARD MD Jun 02, 2020 09:48
--- NOTE | 2020-06-02 11:25 | NUR ---
NURSING NOTE: DISCHARGE PT DISCHARGED HOME WITH HH VIA WC. PICKED UP BY . PT WORE MASK DURING DISCHARGE. WRITTEN AND VERBAL DISCHARGE INSTRUCTIONS GIVEN. VERBAL UNDERSTANDING RECEIVED. RX FOR COUGH SYRUP GIVEN. NO FURTHER QUESTIONS. PAWAN FRENCH
--- NOTE | 2020-06-02 16:50 | PN ---
DATE: SUBJECTIVE: This is a pleasant 74-year-old female with COVID-19 infection and she is recovering gradually and without any significant issues except for her taste, some shortness of breath and still has to use an inhaler. She does get short of breath with minimal exertion. OBJECTIVE: VITAL SIGNS: Blood pressure 120/74, respiratory rate 18, pulse 70, afebrile. GENERAL: The patient is alert and oriented. LUNGS: Diminished throughout, but basically clear. CARDIOVASCULAR: Regular sinus rhythm, S1, S2, without murmur, rub, thrill, or extra heart sounds. ABDOMEN: Soft, nontender. EXTREMITIES: No clubbing, cyanosis or edema. IMPRESSION: COVID-19; acute respiratory distress is a result of that. PLAN: Continue with antibiotics and aggressive pulmonary toilet and will make further evaluation on her in the morning. SABINO MENARD MD DR: VLAD/jeannette JOB#: [id number] / [id number]
== END 2020-06-02 11:28 | disposition home health service (06) | DRG 177 ==
LOC: ER 02:20 → 1 SOUTH 05:59
PROVIDERS: ADMIT Family Medicine; ATTEND Family Medicine
DX: U07.1 COVID-19 (principal); J12.89 Other viral pneumonia; E87.1 Hypo-osmolality and hyponatremia; E03.9 Hypothyroidism, unspecified; E11.9 Type 2 diabetes mellitus without complications; E78.00 Pure hypercholesterolemia, unspecified; I10 Essential (primary) hypertension; Z86.19 Personal history of other infectious and parasitic diseases; Z91.19 Patient's noncompliance with other medical treatment and regimen; J98.01 Acute bronchospasm; F41.9 Anxiety disorder, unspecified; M19.90 Unspecified osteoarthritis, unspecified site; Z90.49 Acquired absence of other specified parts of digestive tract; R06.03 Acute respiratory distress; J40 Bronchitis, not specified as acute or chronic; B34.9 Viral infection, unspecified
CPT/HCPCS: 36415; 71045; 80048; 80053; 82550; 83605; 84484; 85025; 85379; 87804; 93005; 96374; 96375; 99285; J0456; J1100; J2405; J7120; J7512; U0003